=== PATIENT | female | born 1980 | race American Indian/Alaskan Native ===

== ENCOUNTER 2018-10-05 08:00 | Emergency (ER) | payer MEDICARE ==
[2018-10-05 08:09] VITALS: BP 156/97
[2018-10-05] MEDS ORDERED: TORADOL IM ONE (08:28)
[2018-10-05 08:55] LABS: Mucus,Urine FEW /HPF
[2018-10-05 08:56] LABS: Bilirubin,Urine NEG (Negative); Blood,Urine LG (Negative); Color,Urine Yellow (Yellow); Protein,Urine <15 mg/dL mg/dL (Negative); Urobilinogen,Urine < 2.0 mg/dL (<2.0)
[2018-10-05 08:57] LABS: HCG Qualitative,Urine Negative (Negative)
--- NOTE | 2018-10-05 08:59 | Emergency Department Report ---
HPI - General Chief Complaint: Abdominal Pain Time Seen by Provider: 10/05/18 08:22 - HPI HPI: This is a 37-year-old female with a history of back surgery in 2012 who presents to ED complaining of left sided lower back pain started [address] ates the pain arrived suddenly. She describes pain as sharp, intermittent is worsened with sitting down and sometimes standing up. She denies dysuria, fever, recent injury or trauma fall, dizziness, diarrhea ED Past Medical Hx - Past Medical History Previous Medical History?: Yes Hx Hypertension: Yes Hx Congestive Heart Failure: No Hx Diabetes: Yes Hx Deep Vein Thrombosis: No Hx Renal Disease: No Hx Sickle Cell Disease: No Hx Seizures: No Hx Asthma: No Hx COPD: No Hx HIV: No - Surgical History Past Surgical History?: Yes Additional Surgical History: lower back surgery 2012 - Social History Smoking Status: Never Smoker Substance Use Type: None - Medications Home Medications: Home Medications Medication Instructions Recorded Confirmed Last Taken Type metFORMIN [Glucophage] 500 mg PO BID 05/01/18 05/07/18 04/30/18 10:00 History Ferrous Sulfate [Feosol 325 MG tab] 325 mg PO BID #60 tablet 05/09/18 Unknown Rx HYDROcodone/APAP 5-325 [[place] 1 each PO Q6HR PRN #30 tablet 05/09/18 Unknown Rx 5-325 mg TAB] Vit-Fe Fumar-FA [ 1 each PO QDAY #30 tablet 05/09/18 Unknown Rx Vitamin] Ibuprofen [Motrin 800 MG tab] 800 mg PO Q6H PRN #30 tablet 10/05/18 Unknown Rx traMADol [Ultram 50 MG tab] 50 mg PO Q6HR PRN #20 tablet 10/05/18 Unknown Rx ED Review of Systems ROS: Stated complaint: LOW BACK PAIN Other details as noted in HPI Comment: All other systems reviewed and negative Physical Exam - Physical Exam Vital Signs: Vital Signs 10/05/18 08:07 Temperature 97.5 F L Pulse Rate 76 Respiratory 16 Rate Blood Pressure 156/97 O2 Sat by Pulse 100 Oximetry Physical Exam: GENERAL: Alert and oriented x3, no apparent distress, Normal Gait, atraumatic. HEAD: Head is normocephalic and a-traumatic. BACK: Full range of motion, no spinal tenderness, Tenderness to palpation of the trapezius muscles and latissimus dorsi muscles of the back, no CVA tenderness bilaterally EXTREMITIES/MUSCULOSKELETAL: No cyanosis, clubbing, rash, lesions or edema. Full ROM bilaterally. NEUROLOGIC: The patient is cooperative with no focal neurologic deficits. SKIN: Warm and dry, No lesions, No ulceration or induration present. ED Course Vital Signs 10/05/18 08:07 Temperature 97.5 F L Pulse Rate 76 Respiratory 16 Rate Blood Pressure 156/97 O2 Sat by Pulse 100 Oximetry ED Medical Decision Making - Radiology Data Radiology results: report reviewed, image reviewed - Medical Decision Making 57-year-old female presents with lumbar radiculopathy. CT scan shows no acute injury Discussed findings with the patient. Discussed the patient follow up with orthopedic. as referred. Urinalysis negative. Discussed with patient to follow up with her primary care physician. Critical care attestation.: If time is entered above; I have spent that time in minutes in the direct care of this critically ill patient, excluding procedure time. ED Disposition Clinical Impression: Lumbar radiculopathy Disposition: TO HOME OR SELFCARE Is pt being admited?: No Does the pt Need Aspirin: No Condition: Stable Instructions: Low Back Strain (ED), Lumbar Radiculopathy (ED) Additional Instructions: Make sure to follow up with the primary care physician as discussed. Take all your medications as you've been prescribed. If you have any worsening symptoms or develop new symptoms please return to ED immediately. Prescriptions: Ibuprofen [Motrin 800 MG tab] 800 mg PO Q6H PRN #30 tablet PRN Reason: Pain, Mild (1-3) traMADol [Ultram 50 MG tab] 50 mg PO Q6HR PRN #20 tablet PRN Reason: Pain Referrals: PRIMARY CARE, [Referring] - 3-5 Days ALEXANDER FRENCH MD [Staff Physician] - 3-5 Days Forms: Accompanied Note, Work/School Release Form(ED) Time of Disposition: 09:57
--- NOTE | 2018-10-05 09:38 | Cat Scan Report ---
CT LUMBAR SPINE WITHOUT CONTRAST History: Back pain/injury. Technique: Helical CT images in 1.25 mm images with sagittal and coronal reformatted images. Comparison: None. FINDINGS: Previous posterior fusion from L4-S1 has been performed. Decompressive laminectomies at L4 and L5 are noted. Moderate heterotopic bone formation is noted in the posterior soft tissues at the surgical sites. There is normal height and alignment of the lumbar vertebra. No evidence for fracture or suspicious bony lesion. There is moderate to severe disc space narrowing at L5-S1. The remaining disc levels are within normal limits. Although evaluation of intraspinal contents is limited on noncontrast CT, no large epidural hematoma or bulging disc is identified. The paraspinal soft tissues are unremarkable other than the heterotopic calcifications. IMPRESSION: Surgical changes as described above. No evidence for acute injury.
== END 2018-10-05 10:10 | disposition home or self-care (01) ==
LOC: ED 08:00
DX: M54.16 Radiculopathy, lumbar region (principal); I10 Essential (primary) hypertension; E11.9 Type 2 diabetes mellitus without complications; Z88.0 Allergy status to penicillin
CPT/HCPCS: 72131; 81001; 81025; 96372; 99284; J1885

== ENCOUNTER 2019-08-06 02:45 | Emergency (ER) | payer MEDICARE ==
[2019-08-06 03:04] VITALS: BP 114/72
--- NOTE | 2019-08-06 05:48 | Emergency Department Report ---
- General Chief Complaint: Dizziness Stated Complaint: DIZZINESS/SOB Time Seen by Provider: 08/06/19 05:14 Source: patient Mode of arrival: Ambulatory Limitations: No Limitations - Related Data Home Medications Medication Instructions Recorded Confirmed Last Taken metFORMIN [Glucophage] 500 mg PO BID 05/01/18 05/07/18 04/30/18 10:00 Previous Rx's Medication Instructions Recorded Last Taken Type Ferrous Sulfate [Feosol 325 MG tab] 325 mg PO BID #60 tablet 05/09/18 Unknown Rx HYDROcodone/APAP 5-325 [[place] 1 each PO Q6HR PRN #30 tablet 05/09/18 Unknown Rx 5-325 mg TAB] Vit-Fe Fumar-FA [ 1 each PO QDAY #30 tablet 05/09/18 Unknown Rx Vitamin] Ibuprofen [Motrin 800 MG tab] 800 mg PO Q6H PRN #30 tablet 10/05/18 Unknown Rx traMADoL [Ultram 50 MG tab] 50 mg PO Q6HR PRN #20 tablet 10/05/18 Unknown Rx Fluconazole [Diflucan TAB] 150 mg PO ONCE #1 tablet 04/01/19 Unknown Rx Nitrofurantoin [place]/M-Cryst 100 mg PO Q12HR 7 Days #14 capsule 04/01/19 Unknown Rx [Macrobid CAP] Allergies Allergy/AdvReac Type Severity Reaction Status Date / Time Penicillins Allergy Hives Verified 04/01/19 18:31 ED Review of Systems ROS: Stated complaint: DIZZINESS/SOB Other details as noted in HPI ED Past Medical Hx - Past Medical History Previous Medical History?: Yes Hx Hypertension: Yes Hx Congestive Heart Failure: No Hx Diabetes: Yes Hx Deep Vein Thrombosis: No Hx Renal Disease: No Hx Sickle Cell Disease: No Hx Seizures: No Hx Asthma: No Hx COPD: No Hx HIV: No - Surgical History Past Surgical History?: Yes Additional Surgical History: lower back surgery 2013 - Social History Smoking Status: Never Smoker Substance Use Type: None - Medications Home Medications: Home Medications Medication Instructions Recorded Confirmed Last Taken Type metFORMIN [Glucophage] 500 mg PO BID 05/01/18 05/07/18 04/30/18 10:00 History Ferrous Sulfate [Feosol 325 MG tab] 325 mg PO BID #60 tablet 05/09/18 Unknown Rx HYDROcodone/APAP 5-325 [[place] 1 each PO Q6HR PRN #30 tablet 05/09/18 Unknown Rx 5-325 mg TAB] Vit-Fe Fumar-FA [ 1 each PO QDAY #30 tablet 05/09/18 Unknown Rx Vitamin] Ibuprofen [Motrin 800 MG tab] 800 mg PO Q6H PRN #30 tablet 10/05/18 Unknown Rx traMADoL [Ultram 50 MG tab] 50 mg PO Q6HR PRN #20 tablet 10/05/18 Unknown Rx Fluconazole [Diflucan TAB] 150 mg PO ONCE #1 tablet 04/01/19 Unknown Rx Nitrofurantoin [place]/M-Cryst 100 mg PO Q12HR 7 Days #14 capsule 04/01/19 Unknown Rx [Macrobid CAP] ED Physical Exam - General Limitations: No Limitations ED Course Vital Signs 08/06/19 03:03 Temperature 98.9 F Pulse Rate 77 Respiratory 18 Rate Blood Pressure 114/72 O2 Sat by Pulse 95 Oximetry ED Medical Decision Making - Medical Decision Making This patient presents with symptoms suspicious for likely viral upper respiratory infection. Differential includes bacterial pneumonia, sinusitis, allergic rhinitis, . Do not suspect underlying cardiopulmonary process. I con sidered, but think unlikely, dangerous causes of this patients symptoms to include ACS, CHF or COPD exacerbations, pneumonia, pneumothorax. Patient is nontoxic appearing and not in need of emergent medical intervention. Plan: reassurance, reassessment, over the counter medications, discharge with PCP followup Critical care attestation.: If time is entered above; I have spent that time in minutes in the direct care of this critically ill patient, excluding procedure time. ED Disposition Clinical Impression: URI (upper respiratory infection) Disposition: DC-01 TO HOME OR SELFCARE Is pt being admited?: No Does the pt Need Aspirin: No Condition: Stable Instructions: Upper Respiratory Infection (ED) Referrals: GENI SELLERS MD [Primary Care Provider] - 3-5 Days
== END 2019-08-06 05:43 | disposition home or self-care (01) ==
LOC: ED 02:45
DX: J06.9 Acute upper respiratory infection, unspecified (principal); I10 Essential (primary) hypertension; E11.9 Type 2 diabetes mellitus without complications; Z98.890 Other specified postprocedural states; Z79.1 Long term (current) use of non-steroidal anti-inflammatories (NSAID); Z79.899 Other long term (current) drug therapy; Z88.0 Allergy status to penicillin
CPT/HCPCS: 99282

== ENCOUNTER 2020-07-30 20:58 | Emergency (ER) | payer MEDICARE ==
--- NOTE | 2020-07-30 21:27 | Emergency Department Report ---
Blank Doc - Documentation Documentation: 39-year-old female that presents with chest pain, SOB, and dizziness. This initial assessment/diagnostic orders/clinical plan/treatment(s) is/are subject to change based on patient's health status, clinical progression and re- assessment by fellow clinical providers in the ED. Further treatment and workup at subsequent clinical providers discretion. Patient/guardians urged not to elope from the ED as their condition may be serious if not clinically assessed and managed. Initial orders include: 1- Patient sent to [facility] for further evaluation and treatment 2- cardiac workup
[2020-07-30 21:57] LABS: Basophils % (Auto) 0.5 % (0.0-1.8); Eosinophils # (Auto) 0.1 K/mm3 (0.0-0.4); Eosinophils % (Auto) 1.1 % (0.0-4.3); Hematocrit 35.3 % (30.3-42.9); Lymphocytes # (Auto) 2.2 K/mm3 (1.2-5.4); Lymphocytes % (Auto) 33.5 % (13.4-35.0); Mean Corpuscular HGB Conc 31 % (30-34); Mean Corpuscular Volume 78 fl (79-97); Monocytes # (Auto) 0.3 K/mm3 (0.0-0.8); Monocytes % (Auto) 4.3 % (0.0-7.3); Platelet Count 352 K/mm3 (140-440); Red Blood Count 4.53 M/mm3 (3.65-5.03); Red Cell Distribution Width 16.2 % (13.2-15.2)
[2020-07-30 22:07] LABS: INR 1.1 (0.87-1.13)
[2020-07-30 22:08] LABS: Partial Thromboplastin Time 31.4 Sec. (24.2-36.6)
[2020-07-30 22:18] LABS: Alanine Aminotransferase 11 units/L (7-56); Albumin 4.1 g/dL (3.9-5); BUN/Creatinine Ratio 14; Blood Urea Nitrogen 10 mg/dL (7-17); Calcium 9.3 mg/dL (8.4-10.2); Hemolysis Index 88
--- NOTE | 2020-07-30 22:50 | Emergency Department Report ---
ED Chest Pain HPI - General Chief Complaint: Chest Pain Stated Complaint: CHEST PAIN/DIZZINESS Time Seen by Provider: 07/30/20 21:26 Source: patient Mode of arrival: Ambulatory Limitations: No Limitations - History of Present Illness Initial Comments: Patient is 39 years old female with history of hypertension and diabetes. Patient presented to the ER complaining of substernal chest pain. Patient stated that pain started last night when she was laying down. She described her pain as sharp with no radiation. Patient stated that her pain completely resolved now. Patient denies any shortness of breath or pleuritic chest pain with it. Patient denied any fever, chills or cough. MD Complaint: chest pain -: Last night Onset: during rest Pain Location: substernal Pain Radiation: none Severity: moderate Severity scale (0 -10): 5 Quality: aching Consistency: now resolved - Related Data Home Medications Medication Instructions Recorded Confirmed Last Taken metFORMIN [Glucophage] 500 mg PO BID 05/01/18 05/07/18 04/30/18 10:00 Previous Rx's Medication Instructions Recorded Last Taken Type Ferrous Sulfate [Feosol 325 MG tab] 325 mg PO BID #60 tablet 05/09/18 Unknown Rx HYDROcodone/APAP 5-325 [[place] 1 each PO Q6HR PRN #30 tablet 05/09/18 Unknown Rx 5-325 mg TAB] Vit-Fe Fumar-FA [ 1 each PO QDAY #30 tablet 05/09/18 Unknown Rx Vitamin] Ibuprofen [Motrin 800 MG tab] 800 mg PO Q6H PRN #30 tablet 10/05/18 Unknown Rx traMADoL [Ultram 50 MG tab] 50 mg PO Q6HR PRN #20 tablet 10/05/18 Unknown Rx Fluconazole (Nf) [Diflucan TAB] 150 mg PO ONCE #1 tablet 04/01/19 Unknown Rx Nitrofurantoin [place]/M-Cryst 100 mg PO Q12HR 7 Days #14 capsule 04/01/19 Unknown Rx [Macrobid CAP] Allergies Allergy/AdvReac Type Severity Reaction Status Date / Time Penicillins Allergy Hives Verified 04/01/19 18:31 Heart Score - HEART Score History: Slightly suspicious EKG: Normal Age: < 45 Risk factors: 1-2 risk factors Troponin: < normal limit HEART Score: 1 - Critical Actions Critical Actions: 0-3 pts:0.9-1.7%risk of adverse cardiac event.Candidate for mila draper ED Review of Systems ROS: Stated complaint: CHEST PAIN/DIZZINESS Other details as noted in HPI Comment: All other systems reviewed and negative Constitutional: denies: chills, fever Respiratory: denies: cough, shortness of breath, SOB with exertion Cardiovascular: chest pain. denies: palpitations Gastrointestinal: denies: abdominal pain, nausea, vomiting Neurological: denies: headache, weakness, numbness, paresthesias, confusion ED Past Medical Hx - Past Medical History Previous Medical History?: Yes Hx Hypertension: Yes Hx Congestive Heart Failure: No Hx Diabetes: Yes Hx Deep Vein Thrombosis: No Hx Renal Disease: No Hx Sickle Cell Disease: No Hx Seizures: No Hx Asthma: No Hx COPD: No Hx HIV: No - Surgical History Past Surgical History?: Yes Additional Surgical History: lower back surgery 2012. x3 - Social History Smoking Status: Never Smoker Substance Use Type: None - Medications Home Medications: Home Medications Medication Instructions Recorded Confirmed Last Taken Type metFORMIN [Glucophage] 500 mg PO BID 05/01/18 05/07/18 04/30/18 10:00 History Ferrous Sulfate [Feosol 325 MG tab] 325 mg PO BID #60 tablet 05/09/18 Unknown Rx HYDROcodone/APAP 5-325 [[place] 1 each PO Q6HR PRN #30 tablet 05/09/18 Unknown Rx 5-325 mg TAB] Vit-Fe Fumar-FA [ 1 each PO QDAY #30 tablet 05/09/18 Unknown Rx Vitamin] Ibuprofen [Motrin 800 MG tab] 800 mg PO Q6H PRN #30 tablet 10/05/18 Unknown Rx traMADoL [Ultram 50 MG tab] 50 mg PO Q6HR PRN #20 tablet 10/05/18 Unknown Rx Fluconazole (Nf) [Diflucan TAB] 150 mg PO ONCE #1 tablet 04/01/19 Unknown Rx Nitrofurantoin [place]/M-Cryst 100 mg PO Q12HR 7 Days #14 capsule 04/01/19 Unknown Rx [Macrobid CAP] ED Physical Exam - General Limitations: No Limitations General appearance: alert, in no apparent distress - Head Head exam: Present: atraumatic, normocephalic, normal inspection - Eye Eye exam: Present: normal appearance - ENT ENT exam: Present: normal exam, normal orophraynx, mucous membranes moist - Neck Neck exam: Present: normal inspection, full ROM. Absent: tenderness, meningismus - Respiratory Respiratory exam: Present: normal lung sounds bilaterally, chest wall tenderness - Cardiovascular Cardiovascular Exam: Present: regular rate, normal rhythm, normal heart sounds - GI/Abdominal GI/Abdominal exam: Present: soft, normal bowel sounds. Absent: distended, tenderness, guarding, rebound, rigid, organomegaly, mass, bruit, pulsatile mass, hernia - Extremities Exam Extremities exam: Present: normal inspection, full ROM, normal capillary refill. Absent: tenderness, pedal edema, calf tenderness - Back Exam Back exam: Present: normal inspection, full ROM. Absent: CVA tenderness (R), CVA tenderness (L) - Neurological Exam Neurological exam: Present: alert, oriented X3, CN II-XII intact - Psychiatric Psychiatric exam: Present: normal mood - Skin Skin exam: Present: warm, intact, normal color ED Course Vital Signs 07/30/20 21:27 Temperature 98.0 F Pulse Rate 90 Respiratory 17 Rate Blood Pressure 149/99 O2 Sat by Pulse 97 Oximetry ED Medical Decision Making - Lab Data Result diagrams: 07/30/20 21:37 07/30/20 21:37 - EKG Data -: EKG Interpreted by Ct EKG shows normal: sinus rhythm Rate: normal - EKG Data Interpretation: no acute changes - Radiology Data Radiology results: report reviewed - Medical Decision Making Patient is 39 years old female with history of hypertension and diabetes. Patient presented to the ER complaining of substernal chest pain. Patient st ated that pain started last night when she was laying down. She described her pain as sharp with no radiation. Patient stated that her pain completely resolved now. Patient denies any shortness of breath or pleuritic chest pain with it. Patient denied any fever, chills or cough. EKG is unremarkable with no ST elevation. Labs reviewed and is negative including a negative troponin. Chest x-ray is unremarkable. Patient does not have any chest pain at this moment. Patient chest pain is most likely related to GERD however patient advised to follow-up with her primary doctor for outpatient cardiac work-up and advised to return to the ER if she develop any new symptoms. Critical care attestation.: If time is entered above; I have spent that time in minutes in the direct care of this critically ill patient, excluding procedure time. ED Disposition Clinical Impression: Chest pain, GERD (gastroesophageal reflux disease) Disposition: TO HOME OR SELFCARE Is pt being admited?: No Condition: Stable Instructions: Chest Pain (ED), Nonspecific Chest Pain, Adult, Heartburn, [id number], Gastroesophageal Reflux Disease, Adult Referrals: GENI SELLERS MD [Primary Care Provider] - 3-5 Days
[2020-07-30 22:53] VITALS: BP 118/80
--- NOTE | 2020-07-30 22:55 | XRay Report ---
CHEST 2 VIEWS 2228 INDICATION / CLINICAL INFORMATION: Chest Pain COMPARISON: None available. FINDINGS: SUPPORT DEVICES: None. HEART / MEDIASTINUM: No significant abnormality. LUNGS / PLEURA: No significant pulmonary or pleural abnormality. No pneumothorax. ADDITIONAL FINDINGS: No significant additional findings. IMPRESSION: No significant acute abnormality Signer Name: Wicho Rodríguez MD Signed: 07/30/2020 10:50 PM Workstation Name: [id number]
[2020-07-30 22:58] LABS: Bilirubin,Urine NEG (Negative); Blood,Urine NEG (Negative); Color,Urine Yellow (Yellow); Mucus,Urine 1+ /HPF; Protein,Urine <15 mg/dL mg/dL (Negative); Urobilinogen,Urine < 2.0 mg/dL (<2.0)
== END 2020-07-30 23:10 | disposition home or self-care (01) ==
LOC: ED 20:58
DX: R07.89 Other chest pain (principal); K21.9 Gastro-esophageal reflux disease without esophagitis; I10 Essential (primary) hypertension; E11.9 Type 2 diabetes mellitus without complications; Z98.890 Other specified postprocedural states; Z79.1 Long term (current) use of non-steroidal anti-inflammatories (NSAID); Z79.899 Other long term (current) drug therapy; Z88.0 Allergy status to penicillin
CPT/HCPCS: 36415; 71046; 80053; 81001; 84484; 84703; 85025; 85610; 85730; 93005

== ENCOUNTER 2020-12-23 20:26 | Emergency (ER) | payer MEDICARE ==
[2020-12-23 22:01] VITALS: BP 145/95
[2020-12-23 22:28] LABS: HCG Qualitative,Urine Negative (Negative)
[2020-12-23 22:31] LABS: Bacteria,Urine 3+ /HPF (Negative); Bilirubin,Urine NEG (Negative); Blood,Urine SM (Negative); Color,Urine Yellow (Yellow); Mucus,Urine FEW /HPF; Urobilinogen,Urine < 2.0 mg/dL (<2.0)
[2020-12-23 22:34] LABS: WBC,Urine > 182.0 /HPF (0.0-6.0)
== END 2020-12-24 00:30 | disposition left against medical advice (07) ==
LOC: ED 20:26
DX: R30.9 Painful micturition, unspecified (principal); Z53.21 Procedure and treatment not carried out due to patient leaving prior to being seen by health care provider
CPT/HCPCS: 81001; 81025